=== PATIENT | female | born 1970 | race African-American/Black ===

== ENCOUNTER 2021-03-25 13:56 | Emergency (ER) | payer BC, OTHER ==
[~2021-03-25] VITALS: Ht 175.3 cm; Wt 69.0 kg
[~2021-03-25 13:56] MED LIST: SIMV20TA2 PO
[2021-03-25 15:30] VITALS: BP 130/80
== END 2021-03-25 15:46 | disposition home or self-care (01) ==
LOC: ER 13:56
DX: R51.9 Headache, unspecified (principal); K02.9 Dental caries, unspecified; I10 Essential (primary) hypertension; E78.00 Pure hypercholesterolemia, unspecified
CPT/HCPCS: 99281

== ENCOUNTER 2022-06-16 08:26 | Emergency (ER) | payer BC ==
[~2022-06-16] VITALS: Ht 175.3 cm; Wt 66.0 kg
[2022-06-16 11:34] LABS: BASOPHILS % 1.3 % (0.0-2.0); EOSINOPHILS % 0.4 % (0.0-5.0); HEMATOCRIT. 42.2 % (36.0-48.0); HEMOGLOBIN. 14.1 g/dL (12.0-16.0); LYMPHOCYTES % 16.6 % (20.0-50.0); MEAN CORPUSCULAR VOLUME 92.8 fL (81.0-99.0); MEAN PLATELET VOLUME 8.5 fl (7.4-10.4); MONOCYTES % 8.8 % (2.0-8.0); NEUTROPHILS % 72.9 % (40.0-76.0); PLATELET 369 x1000/uL (130-400); RED BLOOD CELL COUNT 4.55 mill/uL (4.2-5.4); RED CELL DISTRIBUTION WIDTH 13.9 % (11.6-14.6)
[2022-06-16 11:42] LABS: CHLORIDE 106 mEq/L (98-107)
[2022-06-16 13:00] VITALS: BP 149/91
[2022-06-16 13:37] LABS: CLARITY URINE CLEAR (CLEAR); COLOR URINE YELLOW (YELLOW); KETONES URINE TRACE (NEGATIVE); LEUKOCYTE ESTERASE URINE TRACE (NEGATIVE); NITRITE URINE NEGATIVE (NEGATIVE); OCCULT BLOOD URINE 3+ (NEGATIVE); PROTEIN URINE NEGATIVE (NEGATIVE); SPECIFIC GRAVITY URINE 1.003 (1.005-1.030); UROBILINOGEN URINE 0.2 E.U./dL (0.2-1.0)
[2022-06-16] MEDS ORDERED: AMLO2.5T45 PO (14:06)
== END 2022-06-16 14:33 | disposition home or self-care (01) ==
LOC: ER 08:26
DX: I10 Essential (primary) hypertension (principal); R19.7 Diarrhea, unspecified
CPT/HCPCS: 36415; 80053; 81003; 82962; 84484; 85025; 93005; 99284